=== PATIENT | female | born 1955 | race Caucasian/White ===

== ENCOUNTER 2018-06-08 18:09 | Emergency (ER) | payer OTHER ==
[2018-06-08] MEDS ORDERED: FENTANYL CITR 100 MCG/2 ML ONE (19:07)
--- NOTE | 2018-06-08 20:08 | RAD REPORT ---
EXAM DESCRIPTION: RAD - Pelvis - 06/08/2018 7:49 pm CLINICAL HISTORY: Fall, left-sided pelvis and hip pain COMPARISON: None. TECHNIQUE: AP imaging of the pelvis was obtained. FINDINGS: No pelvic fracture identified. No fracture or dislocation of either proximal femur. No sig nificant SI joint or pubic symphysis finding. No pathologic bone process identified. IMPRESSION: Negative pelvis examination for acute or significant finding.
--- NOTE | 2018-06-08 20:10 | RAD REPORT ---
EXAM DESCRIPTION: RAD - Forearm Left - 06/08/2018 7:49 pm CLINICAL HISTORY: Fall, arm pain COMPARISON: None. FINDINGS: Elbow joint and proximal forearm intact. Distal radius fracture is present. There is a tra nsverse fracture across the metaphysis with 20 degree dorsal angulation deformity. There is an additi onal sagittally oriented fracture plane involves the articular surface. No ulna fracture seen. Soft t issue swelling is present around the wrist joint. No significant distraction. There may be minimal co mponent along the dorsal margin of the fracture plane. No foreign body seen. IMPRESSION: Distal radius fracture involving the articular surface. There is minimal dorsal angulati on.
--- NOTE | 2018-06-08 20:52 | ER ---
Nurse's Notes [facility] Name: Carla Amaro Age: 63 yrs Sex: Female : 1955 Arrival Date: 06/08/2018 Time: 18:12 Bed 5 Private MD: Diagnosis: Fall (on) (from) other stairs and steps;Distal left intra-articular radius fracture;Contusion of lower back and pelvis Presentation: 06/08 18:45 Presenting complaint: Patient states: I fell at the bottom of some stairs in my home, sg on the fall down the stairs I must have hurt my Left wrist because it was hurting pretty bad before I even hit the floor, I also have pain in my Left Hip, it was very hard to get into the car to get up here. Care prior to arrival: None. Mechanism of Injury: Fall down 4 steps. 18:45 Acuity: DEACON 4 sg 18:45 Method Of Arrival: Ambulatory sg Historical: - Allergies: 18:15 No Known Allergies; sg - Home Meds: 18:48 None [Active]; sg - PMHx: 18:48 None; sg - PSHx: 18:15 R elbow; sg - Immunization history: Last tetanus immunization:. - Social history:: Smoking status: Patient/guardian denies using tobacco. Screenin:47 Abuse screen: Denies threats or abuse. Denies injuries from another. Tuberculosis sg screening: No symptoms or risk factors identified. Never had TB. 19:06 Nutritional screening: No deficits noted. Fall Risk None identified. aj Primary Survey: 19:00 Breathing/Chest: Respiratory pattern: regular, Respiratory effort: spontaneous, aj unlabored, Breath sounds: clear, bilaterally. Chest inspection: symmetrical rise and fall of the chest. Circulation: Skin color: pink, Skin temperature: warm, dry. Disability Alert. 20:16 Reassessment Airway Airway Patent Breathing/Chest Respiratory pattern Regular aj Respiratory effort Spontaneous Unlabored Circulation Color [place] Temperature Warm Dry Disability Alert. Assessment: 19:06 General: Appears in no apparent distress. comfortable, Behavior is calm, cooperative, aj appropriate for age. Pain: Complains of pain in left wrist. Neuro: Level of Consciousness is awake, alert, obeys commands, Oriented to person, place, time, situation. Respiratory: Airway is patent Respiratory effort is even, unlabored, Respiratory pattern is regular, symmetrical. Derm: Skin is intact, is healthy with good turgor, Skin is pink, warm \T\ dry. normal. Musculoskeletal: Circulation, motion, and sensation intact. Capillary refill < 3 seconds, in bilateral fingers. Swelling present in left wrist Reports pain in left wrist. 20:16 Reassessment: Patient appears in no apparent distress at this time. No changes from aj previously documented assessment. Patient and/or family updated on plan of care and expected duration. Pain level reassessed. Patient is alert, oriented x 3, equal unlabored respirations, skin warm/dry/pink. Patient sitting up on side of bed talking with family. Reports decreased pain Patient states feeling better. Patient states symptoms have improved. Vital Signs: 18:47 BP 161 / 110; Pulse 88; Resp 17; Temp 98.4; Pulse Ox 97% on R/A; Pain 10/10; sg 19:06 BP 151 / 81; Pulse 88; Resp 17; Pulse Ox 96% on R/A; aj 20:16 BP 169 / 75; Pulse 78; Resp 16; Pulse Ox 98% on R/A; aj 20:58 BP 145 / 78; Pulse 82; Resp 16; Pulse Ox 96% on R/A; aj Bethel Coma Score: 18:47 Eye Response: spontaneous(4). Verbal Response: oriented(5). Motor Response: obeys sg commands(6). Total: 15. Trauma Score (Adult): 18:47 Eye Response: spontaneous(1); Verbal Response: oriented(1); Motor Response: obeys sg commands(2); Systolic BP: > 89 mm Hg(4); Respiratory Rate: 10 to 29 per min(4); Lauren Score: 15; Trauma Score: 12 ED Course: 18:12 Patient arrived in ED. mr 18:29 Thea Walden FNP-C is [facility]. snw 18:30 Cecilio Du MD is Attending Physician. snw 18:30 Zuleyka Recinos, TANISHA is Primary Nurse. aj 18:47 Triage completed. sg 19:06 Bed in low position. Call light in reach. Side rails up X 1. Adult w/ patient. Pulse ox aj on. NIBP on. 19:48 Forearm Left XRAY In Process Unspecified. EDMS 19:48 Pelvis XRAY In Process Unspecified. EDMS 20:42 Enrique Paz MD is Referral Physician. snw 20:43 Orthoglass splint: Sugar tong splint applied on left arm. Sling applied to left arm. oe 20:58 No provider procedures requiring assistance completed. Patient did not have IV access aj during this emergency room visit. 20:59 Arm band placed on. aj Administered Medications: 19:06 Drug: fentaNYL (PF) 50 mcg Route: IM; Site: right deltoid; aj 20:18 Follow up: Response: Pain is decreased aj Intake: 18:47 PO: 0ml; Total: 0ml. sg Outcome: 20:51 Discharge ordered by MD. snw 20:58 Discharged to home ambulatory, with family. aj 20:58 Condition: good 20:58 Discharge instructions given to patient, Instructed on discharge instructions, follow up and referral plans. medication usage, Demonstrated understanding of instructions, follow-up care, medications, splint care, Prescriptions given X 2. 20:59 Patient left the ED. noah Signatures: Dispatcher [employer] SIRISHADE Nain Fiore RN RN sg Myers, Amanda, RN RN aj Therrien, Shelly, STRUCTURAL IRON ERECTOR-C STRUCTURAL IRON ERECTOR-Csnw Mitali Lerma mr EmmanuelTimAmol oe Corrections: (The following items were deleted from the chart) 20:46 20:43 Orthoglass splint: Sugar tong splint applied on left arm. Sling applied to left oe arm. oe
--- NOTE | 2018-06-08 20:52 | EDPHYS ---
Physician Documentation [facility] Name: Carla Amaro Age: 63 yrs Sex: Female : 1955 Arrival Date: 06/08/2018 Time: 18:12 Bed 5 Private MD: ED Physician Cecilio Du HPI: 06/08 21:02 This 63 yrs old Female presents to ER via Ambulatory with complaints of Fall snw Injury, Wrist Pain. 21:02 Details of fall: The patient fell from an upright position, while walking. Onset: The snw symptoms/episode began/occurred suddenly, just prior to arrival. Associated injuries: The patient sustained left arm, left hip. Severity of symptoms: At their worst the symptoms were moderate. The patient has not experienced similar symptoms in the past. It is unknown whether or not the patient has recently seen a physician. Pt was walking down the stairs and tried to avoid a dog at the bottom, slipped and fell down about four stairs, no LOC, c/o left arm and left hip pain. Historical: - Allergies: 18:15 No Known Allergies; sg - Home Meds: 18:48 None [Active]; sg - PMHx: 18:48 None; sg - PSHx: 18:15 R elbow; sg - Immunization history: Last tetanus immunization:. - Social history:: Smoking status: Patient/guardian denies using tobacco. ROS: 21:02 Constitutional: Negative for fever, chills, and weight loss, Eyes: Negative for injury, snw pain, redness, and discharge, ENT: Negative for injury, pain, and discharge, Neck: Negative for injury, pain, and swelling, Cardiovascular: Negative for chest pain, palpitations, and edema, Respiratory: Negative for shortness of breath, cough, wheezing, and pleuritic chest pain, Abdomen/GI: Negative for abdominal pain, nausea, vomiting, diarrhea, and constipation, Back: Negative for injury and pain, : Negative for injury, bleeding, discharge, and swelling, Skin: Negative for injury, rash, and discoloration, Neuro: Negative for headache, weakness, numbness, tingling, and seizure. 21:02 MS/extremity: Positive for injury or acute deformity, decreased range of motion, pain, of the left arm, landed on buttock, no LOC. Exam: 21:02 Constitutional: This is a well developed, well nourished patient who is awake, alert, snw and in no acute distress. Head/Face: Normocephalic, atraumatic. Eyes: Pupils equal round and reactive to light, extra-ocular motions intact. Lids and lashes normal. Conjunctiva and sclera are non-icteric and not injected. Cornea within normal limits. Periorbital areas with no swelling, redness, or edema. ENT: Nares patent. No nasal discharge, no septal abnormalities noted. Tympanic membranes are normal and external auditory canals are clear. Oropharynx with no redness, swelling, or masses, exudates, or evidence of obstruction, uvula midline. Mucous membranes moist. Neck: Trachea midline, no thyromegaly or masses palpated, and no cervical lymphadenopathy. Supple, full range of motion without nuchal rigidity, or vertebral point tenderness. No Meningismus. Chest/axilla: Normal chest wall appearance and motion. Nontender with no deformity. No lesions are appreciated. Cardiovascular: Regular rate and rhythm with a normal S1 and S2. No gallops, murmurs, or rubs. Normal PMI, no JVD. No pulse deficits. Respiratory: Lungs have equal breath sounds bilaterally, clear to auscultation and percussion. No rales, rhonchi or wheezes noted. No increased work of breathing, no retractions or nasal flaring. Abdomen/GI: Soft, non-tender, with normal bowel sounds. No distension or tympany. No guarding or rebound. No evidence of tenderness throughout. Back: No spinal tenderness. No costovertebral tenderness. Full range of motion. Skin: Warm, dry with normal turgor. Normal color with no rashes, no lesions, and no evidence of cellulitis. Neuro: Awake and alert, GCS 15, oriented to person, place, time, and situation. Cranial nerves II-XII grossly intact. Motor strength 5/5 in all extremities. Sensory grossly intact. Cerebellar exam normal. Normal gait. Psych: Awake, alert, with orientation to person, place and time. Behavior, mood, and affect are within normal limits. 21:02 Musculoskeletal/extremity: Extremities: grossly normal except: noted in the left arm: deformity, pain, swelling, tenderness, ROM: limited active range of motion due to pain, in the left wrist, Circulation is intact in all extremities. Sensation intact. tenderness to hips. Vital Signs: 18:47 BP 161 / 110; Pulse 88; Resp 17; Temp 98.4; Pulse Ox 97% on R/A; Pain 10/10; sg 19:06 BP 151 / 81; Pulse 88; Resp 17; Pulse Ox 96% on R/A; aj 20:16 BP 169 / 75; Pulse 78; Resp 16; Pulse Ox 98% on R/A; aj 20:58 BP 145 / 78; Pulse 82; Resp 16; Pulse Ox 96% on R/A; aj Marshall Coma Score: 18:47 Eye Response: spontaneous(4). Verbal Response: oriented(5). Motor Response: obeys sg commands(6). Total: 15. Trauma Score (Adult): 18:47 Eye Response: spontaneous(1); Verbal Response: oriented(1); Motor Response: obeys sg commands(2); Systolic BP: > 89 mm Hg(4); Respiratory Rate: 10 to 29 per min(4); Lauren Score: 15; Trauma Score: 12 MDM: 18:30 Patient medically screened. snw 21:19 Data reviewed: vital signs, nurses notes. Data interpreted: Pulse oximetry: on room air snw is 96 %. Interpretation: acceptable. Counseling: I had a detailed discussion with the patient and/or guardian regarding: the historical points, exam findings, and any diagnostic results supporting the discharge/admit diagnosis, the presence of at least one elevated blood pressure reading (>120/80) during this emergency department visit, radiology results, the need for outpatient follow up, to return to the emergency department if symptoms worsen or persist or if there are any questions or concerns that arise at home. Special discussion: Based on the history and exam findings, there is no indication for further emergent testing or inpatient evaluation. I discussed with the patient/guardian the need to see the orthopedic surgeon for further evaluation of the symptoms. I discussed with the patient/guardian the need to see the primary care provider for further evaluation of the symptoms. 21:24 Response to treatment: the patient's symptoms have markedly improved after treatment, + snw cap refill and NVS post splint placement. 06/08 18:54 Order name: Forearm Left XRAY; Complete Time: 20:12 snw 06/08 18:54 Order name: Pelvis XRAY; Complete Time: 20:12 snw 06/08 20:22 Order name: Abbi Tong Forearm Splint; Complete Time: 20:45 snw 06/08 20:22 Order name: Sling; Complete Time: 20:45 snw Administered Medications: 19:06 Drug: fentaNYL (PF) 50 mcg Route: IM; Site: right deltoid; aj 20:18 Follow up: Response: Pain is decreased aj Disposition: 06/08/18 20:51 Discharged to Home. Impression: Fall (on) (from) other stairs and steps, Distal left intra-articular radius fracture, Contusion of lower back and pelvis. - Condition is Stable. - Discharge Instructions: Contusion, Forearm Fracture, Fall Prevention in the Home. - Prescriptions for Diclofenac Sodium 75 mg Oral Tablet Sustained Release - take 1 tablet by ORAL route 2 times per day; 30 tablet. orphenadrine citrate 100 mg Oral Tablet Sustained Release - take 1 tablet by ORAL route 2 times per day As needed; 20 tablet. - Medication Reconciliation Form, Thank You Letter, Antibiotic Education, Prescription Opioid Use form. - Follow up: Enrique Paz MD; When: 2 - 3 days; Reason: Recheck today's complaints, Continuance of care, Re-evaluation by your physician. Addendum: 06/10/2018 08:14 Co-signature as Attending Physician, Cecilio Du MD I agree with the assessment and w a plan of care. Signatures: Dispatcher [employer] EDMS Nain Fiore RN RN sg Myers, Amanda, RN RN aj Therrien, Shelly, WELFARE DIRECTOR-C WELFARE DIRECTOR-Csnw Cecilio Du MD MD ut Corrections: (The following items were deleted from the chart) 06/08 20:59 20:51 06/08/2018 20:51 Discharged to Home. Impression: Fall (on) (from) other stairs aj and steps; Distal left intra-articular radius fracture; Contusion of lower back and pelvis. Condition is Stable. Forms are Medication Reconciliation Form, Thank You Letter, Antibiotic Education, Prescription Opioid Use. Follow up: Enrique aPz; When: 2 - 3 days; Reason: Recheck today's complaints, Continuance of care, Re-evaluation by your physician. snw
[2018-06-08 21:05] VITALS: TEMP 98.4
[2018-06-08 21:09] VITALS: BP 145/78; O2SAT 96
== END 2018-06-08 20:59 | disposition home or self-care (01) ==
LOC: ER 18:09
PROC: 2W3DX1Z Immobilization of Left Lower Arm using Splint (ICD-10-PCS; principal; 2018-06-08)
DX: S52.572A Other intraarticular fracture of lower end of left radius, initial encounter for closed fracture (principal); S30.0XXA Contusion of lower back and pelvis, initial encounter; W10.9XXA Fall (on) (from) unspecified stairs and steps, initial encounter; Y93.89 Activity, other specified; Y92.9 Unspecified place or not applicable
CPT/HCPCS: 72170; 96372; 99284; J3010

== ENCOUNTER 2018-12-15 09:25 | Emergency (ER) | payer OTHER ==
--- OUTSIDE RECORDS SUMMARY | 2018-12-15 09:27 | XMS REPORT ---
:1955 Author Organization [employer] Care Team Providers Name Role Phone Guevara, Na Provider Role Unavailable Allergies No Known Allergies Problems Problem Type Condition Code Onset Dates Condition Status Problem Mixed hyperlipidemia E78.2 Active Problem Adult BMI 50.0-59.9 kg/sq m Z68.43 Active Problem Hypertension I10 Active Problem Closed fracture of left wrist, S62.102S Active sequela Problem Hypertensive urgency I16.0 Active Problem Asymptomatic hypertensive urgency I16.0 Active Medications No Known Medications Results No Known Results Summary Purpose eClinicalWorks Submission
--- OUTSIDE RECORDS SUMMARY | 2018-12-15 09:27 | XMS REPORT ---
:1955 Author Organization [employer] Care Team Providers Name Role Phone Guevara, Na Provider Role Unavailable Allergies, Adverse Reactions, Alerts Substance Reaction Event Type N.K.D.A. Info Not Available Non Drug Allergy Problems Problem Type Condition Code Onset Dates Condition Status Assessment Other specified bacterial agents B96.89 Active as the cause of diseases classified elsewhere Assessment Encounter for general adult Z00.01 Active medical examination with abnormal findings Assessment White coat syndrome with diagnosis I10 Active of hypertension Assessment Mixed hyperlipidemia E78.2 Active Assessment Acute vaginitis N76.0 Active Assessment Prediabetes R73.03 Active Problem Mixed hyperlipidemia E78.2 Active Problem Adult BMI 50.0-59.9 kg/sq m Z68.43 Active Problem Hypertension I10 Active Problem Closed fracture of left wrist, S62.102S Active sequela Problem Hypertensive urgency I16.0 Active Problem Asymptomatic hypertensive urgency I16.0 Active Medications Medication Code Code Instructions Start End Date Status Dosage System Date Metronidazole [facility] 00860478001 500 MG Orally Nov 07, Active 1 tablet Twice a day 2018 Lisinopril [facility] 03033160103 20 MG Orally Active 1 tablet Once a day Results No Known Results Summary Purpose [employer]ClinicalWorks Submission
--- NOTE | 2018-12-15 10:19 | EDPHYS ---
Physician Documentation [facility] Name: Carla Amaro Age: 63 yrs Sex: Female : 1955 Arrival Date: 12/15/2018 Time: 09:28 Bed 18 Private MD: Iwona Guevara ED Physician Larry Carson HPI: 12/15 09:53 This 63 yrs old Female presents to ER via Ambulatory with complaints of Foot kdr Pain. 09:53 The patient presents with pain, that is acute, a rash, erythematous, The patient has kdr painful itching and dried skin on the arch of the sole of her foot. It has been there about three days and has become more painful since it started to crack open with minor bleeding. The area is about 2.5 cm x 3.5 cm. There is mild surrounding erythema but no other evidence of cellulitis. Historical: - Allergies: 09:46 No Known Allergies; hj - Home Meds: 09:46 None [Active]; hj - PMHx: 09:46 None; hj - PSHx: 09:46 None; hj - Immunization history:: Adult Immunizations up to date. - Social history:: Smoking status: Patient/guardian denies using tobacco, Patient/guardian denies using alcohol. - Ebola Screening: : Patient negative for fever greater than or equal to 101.5 degrees Fahrenheit, and additional compatible Ebola Virus Disease symptoms Patient denies exposure to infectious person Patient denies travel to an Ebola-affected area in the 21 days before illness onset. ROS: 09:53 Skin: Negative for injury, rash, and discoloration. kdr Exam: 09:53 Skin: rash can be described as erythematous, macular, nonspecific, plaque-like, raised, kdr Fungal rash. Vital Signs: 09:48 Resp 18; Temp 98.1(O); Pulse Ox 100% on R/A; Weight 106.14 kg; Height 5 ft. 6 in. hj (167.64 cm); Pain 5/10; 10:15 BP 124 / 77; Pulse 73; Resp 17; Pulse Ox 100% on R/A; Pain 5/10; ed1 09:48 Body Mass Index 37.77 (106.14 kg, 167.64 cm) MDM: 09:53 Data reviewed: vital signs, nurses notes. Counseling: I had a detailed discussion with kdr the patient and/or guardian regarding: the historical points, exam findings, and any diagnostic results supporting the discharge/admit diagnosis, the need for outpatient follow up. 10:18 Patient medically screened. kdr Administered Medications: 10:14 Drug: Lotrimin 1 % 1 application Route: Topical; Site: affected area; ed1 10:24 Follow up: Response: No adverse reaction ed1 Disposition: 12/15/18 10:18 Discharged to Home. Impression: Fungal rash on arch of left foot. - Condition is Stable. - Discharge Instructions: Rash, [id number]. - Prescriptions for Lotrimin AF 1 % Topical cream - apply 1 application by TOPICAL route 2 times per day Until resolved; 1 Container. - Medication Reconciliation Form, Thank You Letter, Antibiotic Education form. - Follow up: Iwona Guevara MD; When: 2 - 3 days; Reason: If symptoms return, Further diagnostic work-up, Recheck today's complaints, Continuance of care, Re-evaluation by your physician. - Problem is new. - Symptoms have improved. Signatures: Larry Carson MD MD [facility] Joan Sloan RN RN ed1 Pedro Delatorre RN RN Corrections: (The following items were deleted from the chart) 10:25 10:18 12/15/2018 10:18 Discharged to Home. Impression: Fungal rash on arch of left ed1 foot. Condition is Stable. Forms are Medication Reconciliation Form, Thank You Letter, Antibiotic Education, Prescription Opioid Use. Follow up: Iwona Guevara; When: 2 - 3 days; Reason: If symptoms return, Further diagnostic work-up, Recheck today's complaints, Continuance of care, Re-evaluation by your physician. Problem is new. Symptoms have improved. kdr
--- NOTE | 2018-12-15 10:19 | ER ---
Nurse's Notes [facility] Name: Carla Amaro Age: 63 yrs Sex: Female : 1955 Arrival Date: 12/15/2018 Time: 09:28 Bed 18 Private MD: Iwona Guevara Diagnosis: Fungal rash on arch of left foot Presentation: 12/15 09:43 Presenting complaint: Patient states: i noticed a scaly, painful, red, skin breakdown, hj on my the bottom of my L foot; and over days it becomes itchy as well; denies fever and chills;. Transition of care: patient was not received from another setting of care. Onset of symptoms was December 15, 2018. Risk Assessment: Do you want to hurt yourself or someone else? Patient reports no desire to harm self or others. Initial Sepsis Screen: Does the patient meet any 2 criteria? Yes Does the patient have a suspected source of infection? Yes: Skin breakdown/wound. Care prior to arrival: None. 09:43 Method Of Arrival: Ambulatory 09:43 Acuity: DEACON 4 hj Triage Assessment: 09:47 General: Appears in no apparent distress. uncomfortable, Behavior is calm, cooperative, hj appropriate for age. Pain: Complains of pain in left foot Pain currently is 5 out of 10 on a pain scale. Historical: - Allergies: 09:46 No Known Allergies; hj - Home Meds: 09:46 None [Active]; hj - PMHx: 09:46 None; hj - PSHx: 09:46 None; hj - Immunization history:: Adult Immunizations up to date. - Social history:: Smoking status: Patient/guardian denies using tobacco, Patient/guardian denies using alcohol. - Ebola Screening: : Patient negative for fever greater than or equal to 101.5 degrees Fahrenheit, and additional compatible Ebola Virus Disease symptoms Patient denies exposure to infectious person Patient denies travel to an Ebola-affected area in the 21 days before illness onset. Screenin:47 Abuse screen: Denies threats or abuse. Denies injuries from another. Nutritional hj screening: No deficits noted. Tuberculosis screening: No symptoms or risk factors identified. Fall Risk None identified. Assessment: 10:15 General: Appears in no apparent distress. Behavior is calm, cooperative. Pain: ed1 Complains of pain in arch of left foot Pain does not radiate. Pain currently is 8 out of 10 on a pain scale. Quality of pain is described as aching, Pain began 2-3 days ago. Is continuous. Neuro: Level of Consciousness is awake, alert, obeys commands, Oriented to person, place, time, situation. Cardiovascular: Denies chest pain, Heart tones S1 S2 present. Respiratory: Airway is patent Respiratory effort is even, unlabored, Respiratory pattern is regular, symmetrical, Breath sounds are clear bilaterally. GI: No signs and/or symptoms were reported involving the gastrointestinal system. : No signs and/or symptoms were reported regarding the genitourinary system. EENT: No signs and/or symptoms were reported regarding the EENT system. Derm: scaly area noted to bottom of left foot Reports itching, peeling, Denies pain. Musculoskeletal: Circulation, motion, and sensation intact. Vital Signs: 09:48 Resp 18; Temp 98.1(O); Pulse Ox 100% on R/A; Weight 106.14 kg; Height 5 ft. 6 in. (167.64 cm); Pain 5/10; 10:15 BP 124 / 77; Pulse 73; Resp 17; Pulse Ox 100% on R/A; Pain 5/10; ed1 09:48 Body Mass Index 37.77 (106.14 kg, 167.64 cm) ED Course: 09:28 Patient arrived in ED. mr 09:28 Iwona Guevara MD is Private Physician. mr 09:35 Larry Carson MD is Attending Physician. kdr 09:43 Pedro Delatorre RN is Primary Nurse. hj 09:46 Triage completed. hj 09:47 Arm band placed on right wrist. hj 09:48 Patient has correct armband on for positive identification. Bed in low position. Call light in reach. Side rails up X 1. 09:59 Primary Nurse role handed off by Pedro Delatorre, TANISHA ed1 09:59 Joan Sloan RN is Primary Nurse. ed1 10:15 No provider procedures requiring assistance completed. Patient did not have IV access ed1 during this emergency room visit. 10:17 Iwona Guevara MD is Referral Physician. kdr 10:18 Awaiting disposition. ed1 Administered Medications: 10:14 Drug: Lotrimin 1 % 1 application Route: Topical; Site: affected area; ed1 10:24 Follow up: Response: No adverse reaction ed1 Outcome: 10:18 Discharge ordered by . jonah 10:24 Discharged to home ambulatory. ed1 10:24 Condition: good 10:24 Discharge instructions given to patient, Instructed on discharge instructions, follow up and referral plans. medication usage, Demonstrated understanding of instructions, follow-up care, medications, Prescriptions given X 1. 10:25 Patient left the ED. ed1 Signatures: Larry Carson MD MD kdr Rivera, Mary mr Riggs, Erika, RN RN ed1 Pedro Delatorre RN RN Corrections: (The following items were deleted from the chart) 10:17 10:15 Pain: Denies pain. ed1 ed1
[2018-12-15 10:30] VITALS: TEMP 98.1; O2SAT 100
[2018-12-15 10:31] VITALS: BP 124/77
[2018-12-15] MEDS ORDERED: CLOTRIMAZOLE 1% CREAM 15 GM TOP SCH (21:00)
== END 2018-12-15 10:25 | disposition home or self-care (01) ==
LOC: ER 09:25
DX: R21 Rash and other nonspecific skin eruption (principal)
CPT/HCPCS: 99283

== ENCOUNTER 2025-05-29 04:35 | Emergency (ER) | payer OTHER ==
--- OUTSIDE RECORDS SUMMARY | 2025-05-29 04:39 | XMS REPORT | Continuity of Care Document ---
Author Name Unknown Address [address] [facility] [address] [place] [address] [facility] Address [address] [facility] [address] [place] [address] Care Team Providers Care E Commerce Project Manager Name Role Phone Laurel Hughes MD Primary Care Physician [phone] Laurel Hughes Attending Clinician Unavailable Ninoska Hughes Attending Clinician Unavailable Deandra Butler Attending Clinician Unavailable Iwona Guevara Attending Clinician Unavailable Monster Walton PA-C Attending Clinician [phone] DANNY ALDRICH Attending Clinician Unavail able DANNY ALDRICH Attending Clinician Unavail Danny Quinteros MD Attending Clinician [phone] KENIA MONTANO Attending Clinician Unavaila KENIA Luciano Admitting Clinician Unavailpavithra partida Payers Payer Name Policy Type Policy Number Effective Date Expirati on Date Source [employer]ARE 53 [id number] 2020 00:00:00 [facility] Problems Condition Name Condition Details Condition Category Status Onset Date Resolution Date Last Treatment Date Treating Clinician Comments Source Uterine mass Uterine mass Disease Active 10-25 00:00: 00 [facility] Benign neoplasm of skin Other benign neoplasm of skin, unspecifie d Problem [facility] Allergic rhinitis Non-season al allergic rhinitis, unspecifie d trigger Problem [facility] [id number] Seasonal allergies Problem [facility] [id number] Body mass index (BMI) of 40.0-44.9 in adult Problem [facility] [id number] Mixed hyperlipid emia Problem [facility] Hypertensi on Hypertensi on Problem [facility] [id number] Closed fracture of left wrist, sequela Problem [facility] [id number] Hypertensi ve urgency Problem [facility] [id number] Fatty liver Problem [facility] Essential hypertensi on White coat syndrome with diagnosis of hypertensi on Problem [facility] [id number] Hyperkalem ia Problem [facility] [id number] Prediabete s Problem [facility] [id number] Bilateral carotid artery disease, unspecifie d type Problem [facility] Allergies, Adverse Reactions, Alerts Allergy Name Allergy Type Status Severity Reaction(s) Onset Date Inactive Date Treating Clinician Comments Source NO KNOWN ALLERGIE S Drug Class Active [facility] Social History Social Habit Start Date Stop Date Quantity Comments Source History of Tobacco Use [facility] Sexual orientation U [facility] Sex assigned at 1955 00:00:00 1955 00:00:00 [facility] Smoking Status Start Date Stop Date Source Tobacco smoking consumption unknown [facility] Never Smoker [facility] Medications Ordered Medication Name Filled Medication Name Start Date Stop Date Current Medication? Ordering Clinician Indication Dosage Frequency Signature (SIG) Comments Components Source methylPREDN ISolone (MEDROL, ROYAL,) 4 mg tablets 2023-10 00:00: 00 Yes [id number] Take by mouth SEE-INSTRU CTIONS. follow package directions [facility] amoxicillin -clavulanat e 875-125 mg per tablet 2023-10 00:00: 00 Yes [id number] 1{tbl} Take 1 tablet by mouth every 12 (twelve) hours. [facility] fluorescein (FUL-DELLA) ophthalmic strip 1 mg 2023-10 15:45: 00 08-25 15:45 :00 No 1mg 1 mg, Left Eye, ONCE, 1 dose, On 08/25/24 at 0945, Routine, store team member approving non-formul myrna medication : DANNY ALDRICH, Reason for non-formul myrna use: Specific indication for non-formul myrna alternativ e [facility] proparacain e (ALCAINE) 0.5 % ophthalmic solution 2 Drop 2023-10 15:00: 00 08-25 15:00 :00 No 2[drp] 2 Drop, Left Eye, ONCE, 1 dose, On 08/25/24 at 0900, NICKY [facility] ciprofloxac in HCl 0.3 % opthalmic drops 2023-10 00:00: 00 Yes [id number] 2[drp] Place 2 Drops in left eye 4 (four) times daily. [facility] iopamidol (ISOVUE 370-500 mL) injection 85 mL 10-25 21:15: 00 10-25 21:15 :00 No 85mL 85 mL, Intravenou s, ONCE, 1 dose, On Tu10/25/23 at 1515, Routine [facility] ketorolac 10 mg tablet 10-25 00:00: 00 10-29 05:59 :00 No [id number] 10mg Take 1 tablet by mouth every 8 (eight) hours for 3 days. [facility] Aspirin Adult Low Dose 81 MG Aspirin Adult Low Dose 81 MG 06-23 00:00: 00 No 1{table t} QD Aspirin Adult Low Dose 81 MG Rosuvastati n Calcium 20 MG Rosuvastati n Calcium 20 MG No 1{table t} Rosuvastat in Calcium 20 MG Lisinopril 20 MG Lisinopril 20 MG No 1{table t} QD Lisinopril 20 MG Centrum Silver 50+Women - Centrum Silver 50+Women - No Centrum Silver 50+Women - Vital Signs Vital Name Observation Time Observation Value Comments Antonia salazar height 2024-11-19 08:00:00 64 [in_i] Commo n [facility] weight 2024-11-19 08:00:00 217 [lb_av] Comm on [facility] temperature 2024-11-19 08:00:00 96.7 [degF] Com [facility] bmi 2024-11-19 08:00:00 37.24 kg/m2 Comm on [facility] oximetry 2024-11-19 08:00:00 98 % Commo n [facility] respiratory rate 2024-11-19 08:00:00 16 /min [facility] blood pressure systolic 2024-11-19 08:00:00 132 mm[Hg] [facility] blood pressure diastolic 2024-11-19 08:00:00 72 mm[Hg] [facility] height 2024-11-19 08:00:00 64 [in_i] Commo n [facility] weight 2024-11-19 08:00:00 217 [lb_av] Comm on [facility] temperature 2024-11-19 08:00:00 96.7 [degF] Com [facility] bmi 2024-11-19 08:00:00 37.24 kg/m2 Comm on [facility] oximetry 2024-11-19 08:00:00 98 % Commo n [facility] respiratory rate 2024-11-19 08:00:00 16 /min [facility] blood pressure systolic 2024-11-19 08:00:00 132 mm[Hg] [facility] blood pressure diastolic 2024-11-19 08:00:00 72 mm[Hg] [facility] height 2024-11-19 08:00:00 64 [in_i] Commo n [facility] weight 2024-11-19 08:00:00 217 [lb_av] Comm on [facility] temperature 2024-11-19 08:00:00 96.7 [degF] Com [facility] bmi 2024-11-19 08:00:00 37.24 kg/m2 Comm on [facility] oximetry 2024-11-19 08:00:00 98 % Commo n [facility] respiratory rate 2024-11-19 08:00:00 16 /min [facility] blood pressure systolic 2024-11-19 08:00:00 132 mm[Hg] [facility] blood pressure diastolic 2024-11-19 08:00:00 72 mm[Hg] [facility] height 2024-11-02 14:00:00 64 [in_i] Commo n [facility] weight 2024-11-02 14:00:00 217 [lb_av] Comm on [facility] temperature 2024-11-02 14:00:00 97.2 [degF] Com [facility] bmi 2024-11-02 14:00:00 37.24 kg/m2 Comm on [facility] oximetry 2024-11-02 14:00:00 97 % Commo n [facility] respiratory rate 2024-11-02 14:00:00 16 /min Common [facility] blood pressure systolic 2024-11-02 14:00:00 124 mm[Hg] [facility] blood pressure diastolic 2024-11-02 14:00:00 76 mm[Hg] [facility] height 2024-09-21 10:00:00 64 [in_i] Commo n [facility] weight 2024-09-21 10:00:00 219 [lb_av] Comm on [facility] temperature 2024-09-21 10:00:00 97.3 [degF] Com mon [facility] bmi 2024-09-21 10:00:00 37.59 kg/m2 Comm on [facility] oximetry 2024-09-21 10:00:00 98 % Commo n [facility] respiratory rate 2024-09-21 10:00:00 16 /min [facility] blood pressure systolic 2024-09-21 10:00:00 126 mm[Hg] [facility] blood pressure diastolic 2024-09-21 10:00:00 82 mm[Hg] [facility] Systolic blood pressure 2024-08-28 23:40:00 167 mm[Hg] [facility] Diastolic blood pressure 2024-08-28 23:40:00 90 mm[Hg] [facility] Heart rate 2024-08-28 23:40:00 103 /min [facility] Body temperature 2024-08-28 23:40:00 37.39 [facility] Respiratory rate 2024-08-28 23:40:00 20 /min [facility] Body height 2024-08-28 23:40:00 167.6 cm [facility] Body weight 2024-08-28 23:40:00 102.967 kg [facility] BMI 2024-08-28 23:40:00 36.64 kg/m2 [facility] Oxygen saturation in Arterial blood by Pulse oximetry 2024-08-28 23:40:00 99 /min [facility] Systolic blood pressure 2024-08-25 15:00:00 142 mm[Hg] [facility] Diastolic blood pressure 2024-08-25 15:00:00 91 mm[Hg] [facility] Heart rate 2024-08-25 15:00:00 73 /min [facility] Respiratory rate 2024-08-25 15:00:00 14 /min [facility] Oxygen saturation in Arterial blood by Pulse oximetry 2024-08-25 15:00:00 97 /min [facility] Body temperature 2024-08-25 13:25:00 37.11 [facility] Body height 2024-08-25 13:25:00 167.6 cm [facility] Body weight 2024-08-25 13:25:00 103.193 kg [facility] BMI 2024-08-25 13:25:00 36.72 kg/m2 [facility] height 2024-08-17 09:00:00 64 [in_i] Commo n [facility] weight 2024-08-17 09:00:00 229.4 [lb_av] Co mmon [facility] temperature 2024-08-17 09:00:00 97 [degF] Comm on [facility] bmi 2024-08-17 09:00:00 39.37 kg/m2 Comm on [facility] oximetry 2024-08-17 09:00:00 96 % Commo n [facility] respiratory rate 2024-08-17 09:00:00 16 /min [facility] blood pressure systolic 2024-08-17 09:00:00 124 mm[Hg] [facility] blood pressure diastolic 2024-08-17 09:00:00 72 mm[Hg] [facility] height 2024-02-15 14:00:00 64 [in_i] Commo n [facility] weight 2024-02-15 14:00:00 237 [lb_av] Comm on [facility] temperature 2024-02-15 14:00:00 97.3 [degF] Com mon [facility] bmi 2024-02-15 14:00:00 40.68 kg/m2 Comm on [facility] oximetry 2024-02-15 14:00:00 96 % Commo n [facility] respiratory rate 2024-02-15 14:00:00 16 /min Common [facility] blood pressure systolic 2024-02-15 14:00:00 124 mm[Hg] [facility] blood pressure diastolic 2024-02-15 14:00:00 70 mm[Hg] [facility] height 2024-02-15 14:00:00 64 [in_i] Commo n [facility] weight 2024-02-15 14:00:00 237 [lb_av] Comm on [facility] temperature 2024-02-15 14:00:00 97.3 [degF] Com mon [facility] bmi 2024-02-15 14:00:00 40.68 kg/m2 Comm on [facility] oximetry 2024-02-15 14:00:00 96 % Commo n [facility] respiratory rate 2024-02-15 14:00:00 16 /min [facility] blood pressure systolic 2024-02-15 14:00:00 124 mm[Hg] [facility] blood pressure diastolic 2024-02-15 14:00:00 70 mm[Hg] [facility] Systolic blood pressure 2023-10-25 20:53:00 140 mm[Hg] [facility] Diastolic blood pressure 2023-10-25 20:53:00 70 mm[Hg] [facility] Heart rate 2023-10-25 20:53:00 78 /min [facility] Respiratory rate 2023-10-25 20:53:00 16 /min [facility] Oxygen saturation in Arterial blood by Pulse oximetry 2023-10-25 20:53:00 95 /min [facility] Body temperature 2023-10-25 18:19:00 37.22 [facility] Body height 2023-10-25 18:19:00 167.6 cm [facility] Body weight 2023-10-25 18:19:00 107.14 kg [facility] BMI 2023-10-25 18:19:00 38.12 kg/m2 [facility] height 2023-08-16 16:20:00 64 [in_i] Commo n [facility] weight 2023-08-16 16:20:00 230 [lb_av] Comm on [facility] temperature 2023-08-16 16:20:00 97.6 [degF] Com [facility] bmi 2023-08-16 16:20:00 39.48 kg/m2 Comm on [facility] oximetry 2023-08-16 16:20:00 98 % Commo n [facility] respiratory rate 2023-08-16 16:20:00 16 /min [facility] blood pressure systolic 2023-08-16 16:20:00 136 mm[Hg] [facility] blood pressure diastolic 2023-08-16 16:20:00 57 mm[Hg] [facility] height 2023-08-01 10:20:00 64 [in_i] Commo n [facility] weight 2023-08-01 10:20:00 230 [lb_av] Comm on [facility] temperature 2023-08-01 10:20:00 97.2 [degF] Com [facility] bmi 2023-08-01 10:20:00 39.48 kg/m2 Comm on [facility] oximetry 2023-08-01 10:20:00 96 % Commo n [facility] respiratory rate 2023-08-01 10:20:00 16 /min [facility] blood pressure systolic 2023-08-01 10:20:00 130 mm[Hg] [facility] blood pressure diastolic 2023-08-01 10:20:00 70 mm[Hg] [facility] height 2023-08-01 11:00:00 64 [in_i] Commo n [facility] weight 2023-08-01 11:00:00 230 [lb_av] Comm on [facility] temperature 2023-08-01 11:00:00 97.2 [degF] Com mon [facility] bmi 2023-08-01 11:00:00 39.48 kg/m2 Comm on [facility] oximetry 2023-08-01 11:00:00 96 % Commo n [facility] respiratory rate 2023-08-01 11:00:00 16 /min [facility] blood pressure systolic 2023-08-01 11:00:00 130 mm[Hg] [facility] blood pressure diastolic 2023-08-01 11:00:00 70 mm[Hg] [facility] height 2023-04-27 08:20:00 64 [in_i] Commo n [facility] weight 2023-04-27 08:20:00 226.0 [lb_av] Co mmon [facility] temperature 2023-04-27 08:20:00 97.3 [degF] Com mon [facility] bmi 2023-04-27 08:20:00 38.79 kg/m2 Comm on [facility] oximetry 2023-04-27 08:20:00 98 % Commo n [facility] respiratory rate 2023-04-27 08:20:00 18 /min [facility] blood pressure systolic 2023-04-27 08:20:00 118 mm[Hg] [facility] blood pressure diastolic 2023-04-27 08:20:00 62 mm[Hg] [facility] height 2022-06-22 09:40:00 64 [in_i] Commo n [facility] weight 2022-06-22 09:40:00 235 [lb_av] Comm on [facility] temperature 2022-06-22 09:40:00 97.1 [degF] Com mon [facility] bmi 2022-06-22 09:40:00 40.33 kg/m2 Comm on [facility] oximetry 2022-06-22 09:40:00 95 % Commo n [facility] respiratory rate 2022-06-22 09:40:00 17 /min [facility] blood pressure systolic 2022-06-22 09:40:00 133 mm[Hg] [facility] blood pressure diastolic 2022-06-22 09:40:00 63 mm[Hg] [facility] height 2022-06-22 09:00:00 64 [in_i] Commo n [facility] weight 2022-06-22 09:00:00 235 [lb_av] Comm on [facility] temperature 2022-06-22 09:00:00 97.1 [degF] Com mon [facility] bmi 2022-06-22 09:00:00 40.33 kg/m2 Comm on [facility] oximetry 2022-06-22 09:00:00 95 % Commo n [facility] respiratory rate 2022-06-22 09:00:00 17 /min [facility] blood pressure systolic 2022-06-22 09:00:00 133 mm[Hg] [facility] blood pressure diastolic 2022-06-22 09:00:00 63 mm[Hg] [facility] height 2021-09-02 10:20:00 56.5 [in_i] Comm on [facility] weight 2021-09-02 10:20:00 231 [lb_av] Comm on [facility] bmi 2021-09-02 10:20:00 50.87 kg/m2 Comm on [facility] Procedures Procedure Date / Time Performed Performing Clinicia n Source RAPID STREP SCREEN FOR GROUP A 2024-08-28 23:49:00 Anton [facility] INFLUENZA A/B RSV COVID NAAT 2024-08-28 23:49:00 Beverlin, Monster [facility] ABDOMEN PELVIS W CONTRAST 2023-10-25 20:14:55 Charmaine [facility] AC PANEL 21 + LACTIC ACID 2023-10-25 18:53:00 Charmaine [facility] LIPASE 2023-10-25 18:52:00 Kenia Montano [facility] HEPATIC FUNCTION PANEL ([id number]) (ALB,T.PRO,BILI T,BU/BC,ALT,AST,ALK PHOS) 2023-10-25 18:52:00 Charmaine [facility] BASIC METABOLIC PANEL (NA, K, CL, CO2, GLUCOSE, BUN, CREATININE, CA) 2023-10-25 18:52:00 Charmaine [facility] CBC WITH DIFF 2023-10-25 18:52:00 Charmaine [facility] URINALYSIS 2023-10-25 18:49:00 Kenia Montano [facility] CONSENT/REFUSAL FOR DIAGNOSIS AND TREATMENT 2023-10-25 18:20:00 Doctor Unassigned, [facility] NOTICE OF PRIVACY PRACTICES 2023-10-25 18:19:28 Doctor Unassigned, [facility] Encounters Start Date/Time End Date/Time Encounter Type Admission Type Attending [facility] Care Facility Care Department Encounter ID Source 2024-11-01 10:14:00 Outpatient Laurel Hughes [facility] [id number] [facility] 2024-08-15 08:03:00 Outpatient Laurel Hughes [facility] [id number] [facility] 2023-08-15 15:27:00 Outpatient Laurel Hughes [facility] [id number] [facility] 2023-08-01 10:23:00 Outpatient Laurel Hughes [facility] [id number] [facility] 2023-07-29 12:16:00 Outpatient [facility] [id number] [facility] 2023-07-28 08:47:00 Outpatient Ninoska Hughes [facility] [id number] [facility] 2023-01-20 13:27:00 Outpatient Ninoska Hughes [facility] [id number] [facility] 2023-01-19 11:55:00 Outpatient Deandra Butler [facility] [id number] [facility] 2022-06-17 09:16:00 Outpatient Guevara, Na [facility] [id number] [facility] 2021-11-11 14:12:56 Outpatient Guevara, Na [facility] [id number] [facility] 2021-11-11 13:33:33 Outpatient Guevara, Na [facility] [id number] [facility] 2021-11-11 12:31:11 Outpatient Guevara, Na [facility] [id number] [facility] 2021-11-11 12:28:35 Outpatient Guevara, Na [facility] [id number] [facility] 2021-11-11 12:27:34 Outpatient Guevara, Na [facility] [id number] [facility] 2021-11-11 12:26:12 Outpatient Guevara, Na [facility] [id number] [facility] 2021-11-11 12:01:22 Outpatient Guevara, Na [facility] [id number] [facility] 2021-11-11 11:58:29 Outpatient Guevara, Na [facility] [id number] [facility] 2021-11-11 11:37:41 Outpatient Iwona Guevara [facility] [id number] [facility] 2021-11-11 11:09:33 Outpatient Iwona Guevara [facility] [id number] [facility] 2025-05-02 00:00:00 2025-05-02 00:00:00 (TEL) [facility] [id number] [facility] 2025-01-17 00:00:00 2025-01-17 00:00:00 (TEL) [facility] [id number] [facility] 2024-11-19 00:00:00 2024-11-19 00:00:00 OFFICE VISIT ESTAB PT LEVEL 4 [facility] [id number] [facility] 2024-11-19 00:00:00 2024-11-19 00:00:00 SUB ANNUAL [facility] VISIT [facility] [id number] [facility] 2024-11-02 00:00:00 2024-11-02 00:00:00 OFFICE VISIT ESTAB PT LEVEL 3 [facility] [id number] [facility] 2024-10-15 00:00:00 2024-10-15 00:00:00 (TEL) [facility] [id number] [facility] 2024-09-21 00:00:00 2024-09-21 00:00:00 OFFICE VISIT ESTAB PT LEVEL 4 [facility] [id number] [facility] 2024-08-28 17:41:00 2024-08-28 19:37:00 Emergency Monster Walton [facility] [id number] [facility] 2024-08-25 07:26:00 2024-08-25 09:32:00 Emergency DANNY ALBRIGHT JOSEPH [facility] ERT [id number] [facility] 2024-08-25 07:26:00 2024-08-25 09:32:00 Emergency Danny Aldrich Paul [facility] [id number]..[id number] [facility] 2024-08-17 00:00:00 2024-08-17 00:00:00 OFFICE VISIT ESTAB PT LEVEL 4 [facility] [id number] [facility] 2024-04-09 00:00:00 2024-04-09 00:00:00 (TEL) [facility]C [facility] [id number] [facility] 2024-04-05 00:00:00 2024-04-05 00:00:00 (TEL) [facility] [id number] [facility] 2024-02-15 00:00:00 2024-02-15 00:00:00 SUB ANNUAL [facility] VISIT [facility] ST[facility] [id number] [facility] 2024-02-15 00:00:00 2024-02-15 00:00:00 OFFICE VISIT ESTAB PT LEVEL 4 [facility] [id number] [facility] 2023-12-19 00:00:00 2023-12-19 00:00:00 (TEL) [facility]C [facility] [id number] [facility] 2023-10-25 12:27:00 2023-10-25 15:14:00 Emergency X KENIA ESCOBAR [facility] ERT [id number] [facility] 2023-10-25 12:27:00 2023-10-25 15:14:00 Emergency Kenia Escobar [facility] 1..[id number] [facility] 2023-08-16 00:00:00 2023-08-16 00:00:00 OFFICE VISIT ESTAB PT LEVEL 4 [facility] [id number] [facility] 2023-08-01 00:00:00 2023-08-01 00:00:00 OFFICE VISIT ESTAB PT LEVEL 4 [facility] [id number] [facility] 2023-08-01 00:00:00 2023-08-01 00:00:00 SUB ANNUAL [facility]LLNESS VISIT [facility] [id number] [facility] 2023-04-27 00:00:00 2023-04-27 00:00:00 OFFICE VISIT ESTAB PT LEVEL 4 [facility] [id number] [facility] 2023-04-27 00:00:00 2023-04-27 00:00:00 (TEL) STLMLC STLMLC [id number] [facility] 2023-04-27 00:00:00 2023-04-27 00:00:00 (TEL) STLMLC STLMLC [id number] [facility] 2023-03-24 00:00:00 2023-03-24 00:00:00 (TEL) STLMLC STLMLC [id number] [facility] 2023-01-19 00:00:00 2023-01-19 00:00:00 (TEL) STLMLC STLMLC [id number] [facility] 2022-08-17 00:00:00 2022-08-17 00:00:00 (TEL) STLMLC STLMLC [id number] [facility] 2022-08-09 00:00:00 2022-08-09 00:00:00 (TEL) STLMLC STLMLC [id number] [facility] 2022-07-15 00:00:00 2022-07-15 00:00:00 (TEL) STLMLC STLMLC [id number] [facility] 2022-06-22 00:00:00 2022-06-22 00:00:00 SUB ANNUAL MCR WELLNESS VISIT STLMLC STLMLC [id number] [facility] 2022-06-22 00:00:00 2022-06-22 00:00:00 (TEL) STLMLC STLMLC [id number] [facility] 2022-06-22 00:00:00 2022-06-22 00:00:00 OFFICE VISIT EST PT LEVEL 3 STLMLC STLMLC [id number] [facility] 2021-09-02 00:00:00 2021-09-02 00:00:00 OL DIG E/M SVC 11-20 MIN STLMLC STLMLC [id number] [facility] 2021-05-20 00:00:00 2021-05-20 00:00:00 Outpatient STLMLC STLMLC [id number] [facility] 2021-05-20 00:00:00 2021-05-20 00:00:00 Outpatient STLMLC STLMLC [id number] [facility] 2021-01-21 00:00:00 2021-01-21 00:00:00 Outpatient STLMLC STLMLC [id number] [facility] 2021-01-21 00:00:00 2021-01-21 00:00:00 Outpatient STLMLC STLMLC [id number] [facility] 2021-01-21 00:00:00 2021-01-21 00:00:00 Outpatient STLMLC STLMLC [id number] [facility] 2020-11-20 00:00:00 2020-11-20 00:00:00 Outpatient STLMLC STLMLC [id number] [facility] 2020-08-20 00:00:00 2020-08-20 00:00:00 Outpatient STLMLC STLMLC [id number] [facility] 2020-05-19 08:20:00 2020-05-19 08:20:00 [facility] [id number] [facility] 2020-04-22 13:23:00 2020-04-22 13:23:[address] [facility] [id number] [facility] 2019-12-10 09:21:00 2019-12-10 09:21:[address] [facility] [id number] [facility] 2019-12-10 08:00:00 2019-12-10 08:00:[address] [facility] [facility] [id number] [facility] 2019-10-15 08:51:00 2019-10-15 08:51:[address] [facility] [id number] [facility] 2019-09-17 09:40:00 2019-09-17 09:40:[address] [facility] [id number] [facility] 2019-09-03 08:05:00 2019-09-03 08:05:[address] [facility] [id number] [facility] 2019-06-11 09:20:00 2019-06-11 09:20:[address] [facility] [facility] [id number] [facility] 2019-01-11 14:02:00 2019-01-11 14:02:[address] [facility] [id number] [facility] 2019-01-10 16:38:00 2019-01-10 16:38:[address] [facility] [id number] [facility] 2018-11-07 09:30:00 2018-11-07 09:30:[address] [facility] [facility] [id number] [facility] 2018-09-28 08:05:00 2018-09-28 08:05:[address] [facility] [id number] [facility] 2018-08-21 00:00:00 2018-08-21 00:00:00 Outpatient [facility] [id number] [facility] Results Test Description Test Time Test Comments Results Result Co mments Source CT ABDOMEN PELVIS W [id number] 20:49:49EXAM: CT ABDOMEN AND PELVIS WITH CONTRAST HISTORY: 68-year-old female with acute abdominal pain nonlocalized leftlower quadrant COMPARISON: None. TECHNIQUE AND FINDINGS: Contiguous axial imaging fromthe level of the lungbases through the pubic symphysis was performed after the uncomplicatedadministration of intravenous contrast. Coronal and sagittalreconstructions were obtained. FINDINGS: LOWER THORAX: The lungs bases are clear. No cardiomegaly. LIVER: No focal hepatic lesions. ?No biliary ductal dilation. GALLBLADDER AND BILIARY TREE: No biliary ductal dilation. ?No gallbladderwall thickening. SPLEEN: No splenomegaly. PANCREAS: No ductal dilation or masses. ADRENAL GLANDS: No adrenal nodules. KIDNEYS: No hydronephrosis, stones, or masses. PERITONEUM AND RETROPERITONEUM: No free air or fluid. LYMPH NODES: No lymphadenopathy. GI TRACT: No dilation or wall thickening. Rectosigmoid diverticula withoutacute inflammation. PELVIS/BLADDER: The urinary bladder is decompressed with thick cruz. Theuterus is mild enlarged, had 0.5 cm long and in the uterine cavity there tobias 2.6 cm nodular den sity of uncertain if this corresponds to an endometrialproliferative process or a fibroid. The adnexa are unremarkable. VESSELS: Moderate aortoiliac atherosclerotic calcifications. BONES AND SOFT TISSUES: No suspicious lytic or sclerotic bony lesions.L5-S1 disc disease.[facility] BASIC METABOLIC PANEL (NA, K, CL, CO2, GLUCOSE, BUN, CREATININE, CA)2023-10-25 19:36:29* Test Item Value Reference Range Interpretation Comme nts NA (test code = 6381343895) 137 mmol/L 135-145 K (test code = 3657812524) 4.6 mmol/L 3.5-5.0 CL (test code = 6815062865) 105 mmol/L 98-108 CO2 TOTAL (test code = 4377366539) 26 mmol/L 23-31 AGAP (test code = 6890878381) 6 2-16 BUN (test code = 8791292835) 16 mg/dL 7-23 GLUCOSE (test code = 2263509400) 94 mg/dL 70-110 CREATININE (test code = 6008879031) 0.59 mg/dL 0.50-1.04 CALCIUM (test code = 6416676701) 9.6 mg/dL 8.6-10.6 eGFR (test code = 63110-7) 98.3 mL/min/1.73m2 CKD-EPI eGFR (20 21). Assuming creatinine has been stable day-to-day for at least three months, the eGFR indicates Category G1 (>= 90 mL/min/1.73 m2) [facility] (ALB,T.PRO,BILI T,BU/BC,ALT,AST,ALK PHOS)2023-10-25 19:36:29* Test Item Value Reference Range Interpretation Comme nts TOTAL BILI (test code = 3130291640) 0.9 mg/dL 0.1-1.1 BILI UNCON (test code = 2427524417) 0.6 mg/dL 0.1-1.1 BILI CONJ (test code = 2327725117) 0.0 mg/dL 0.0-0.3 T PROTEIN (test code = 6053736162) 7.9 g/dL 6.3-8.2 ALBUMIN (test code = 0540587406) 4.4 g/dL 3.5-5.0 ALK PHOS (test code = 8179335219) 78 U/L 34-122 ALTv (test code = 1742-6) 25 U/L 5-35 AST(SGOT) (test code = 8497991045) 39 U/L 13-40 Lab Interpretation (test cod e = 93193-6) [facility] 19:36:28* Test Item Value Reference Range Interpretation Comme nts LIPASE (test code = 5549406598) 114 U/L 0-220 Lab Interpretation (test cod e = 17025-2) [facility] [id number] 19:25:26* Test Item Value Reference Range Interpretation Comme nts WBC (test code = 6690-2) 10.45 See_Comment [Automated messa ge] The system which generated this result transmitted reference range: 4.30 - 11.10 10*3/?L. The reference range was not used to interpret this result as normal/abnormal. RBC (test code = 789-8) 4.86 See_Comment [Automated messa ge] The system which generated this result transmitted reference range: 3.93 - 5.25 10*6/?L. The reference range was not used to interpret this result as normal/abnormal. HGB (test code = 718-7) 14.1 g/dL 11.6-15.0 HCT (test code = 4544-3) 42.4 % 35.7-45.2 MCV (test code = 787-2) 87.2 fL 80.6-95.5 MCH (test code = 785-6) 29.0 pg 25.9-32.8 MCHC (test code = 786-4) 33.3 g/dL 31.6-35.1 RDW-SD (test code = 31333-8) 42.6 fL 39.0-49.9 RDW-CV (test code = 788-0) 13.3 % 12.0-15.5 PLT (test code = 777-3) 260 See_Comment [Automated [employer] ge] The system which generated this result transmitted reference range: 166 - 358 10*3/?L. The reference range was not used to interpret this result as normal/abnormal. MPV (test code = 80403-8) 11.4 fL 9.5-12.9 NRBC/100 WBC (test code = 9068451527) 0.0 See_Comment [Automated [employer] ssage] The system which generated this result transmitted reference range: 0.0 - 10.0 /100 WBCs. The reference range was not used to interpret this result as normal/abnormal. NRBC x10^3 (test code = 3093275718) See_Comment [Automated [employer] ge] The system which generated this result transmitted reference range: 10*3/?L. The reference range was not used to interpret this result as normal/abnormal. GRAN MAT (NEUT) % (test code = 770-8) 64.3 % IMM GRAN % (test code = 8879269181) 0.30 % LYMPH % (test code = 736-9) 25.0 % MONO % (test code = 5905-5) 7.3 % EOS % (test code = 713-8) 2.2 % BASO % (test code = 706-2) 0.9 % GRAN MAT x10^3(ANC) (test code = 9179943558) 6.73 10*3/uL 1.88-7.09 IMM GRAN x10^3 (test code = 6739701609) 0.03 10*3/uL 0.00-0.06 LYMPH x10^3 (test code = 731-0) 2.61 10*3/uL 1.32-3.29 MONO x10^3 (test code = 742-7) 0.76 10*3/uL 0.33-0.92 EOS x10^3 (test code = 711-2) 0.23 10*3/uL 0.03-0.39 BASO x10^3 (test code = 704-7) 0.09 10*3/uL 0.01-0.07 H Lab Interpretation (test code = 70241-8) [facility] + LACTIC [id number] 19:03:21* Test Item Value Reference Range Interpretation Comme nts PH (test code = 0012743427) 7.48 7.32-7.42 H PCO2 LEODAN (test code = 1506779615) 32 See_Comment L [Automated messa ge] The system which generated this result transmitted reference range: 41 - 51 mmHg. The reference range was not used to interpret this result as normal/abnormal. PO2 LEODAN (test code = 6653467421) 85 See_Comment HH [Automated messa ge] The system which generated this result transmitted reference range: 25 - 40 mmHg. The reference range was not used to interpret this result as normal/abnormal. HCO3 LEODAN (test code = 0685059892) 24 See_Comment [Automated messa ge] The system which generated this result transmitted reference range: 24 - 28 mEq/L. The reference range was not used to interpret this result as normal/abnormal. AC VBE(BEAKER) (test code = 9343791058) 0.9 mEq/L THB LEODAN (test code = 2192097222) 15.0 g/dL 12.0-16.0 %O2HB LEODAN (test code = 4165900520) 95.6 % 52.0-63.0 H %COHB LEODAN (test code = 3112058142) 1.1 % 0.0-1.5 %METHB LEODAN (test code = 2941315291) 0.3 % 0.4-1.5 L VOL%O2 LEODAN (test code = 6395921890) 20.2 % 6.0-12.0 H NA (test code = 4175201966) 136 mmol/L 135-145 K+ (test code = 1518445068) 6.0 mmol/L 3.5-5.0 H AC CA IONZ (test code = 6619344063) 4.10 mg/dL 4.50-5.30 L GLUCOSE (test code = 2393893253) 97 mg/dL 70-110 LACTIC ACID (test code = 8202646772) 1.10 mmol/L 0.50-2.20 Lab Interpretation (test code = 45650-2) Abnormal [facility] W/AUTO [id number] 00:00:00* Test Item Value Reference Range Interpretation Comme nts NUCLEATED RBCS (test code = 46242-6) 0.0 /100 WBC'S See_Comment [Automated messa ge] The system which generated this result transmitted reference range: 0.0 /100 WBC'S. The reference range was not used to interpret this result as normal/abnormal. ABSOLUTE EOSINOPHILS (test code = 99874-9) 0.23 K/UL See_Comment [Automated messa ge] The system which generated this result transmitted reference range: 0.00-0.50 K/UL. The reference range was not used to interpret this result as normal/abnormal. ABSOLUTE LYMPHOCYTES (test code = 15685-2) 2.53 K/UL See_Comment [Automated messa ge] The system which generated this result transmitted reference range: 1.00-4.00 K/UL. The reference range was not used to interpret this result as normal/abnormal. ABSOLUTE MONOCYTES (test code = 94444-6) 0.74 K/UL See_Comment [Automated messa ge] The system which generated this result transmitted reference range: 0.20-1.00 K/UL. The reference range was not used to interpret this result as normal/abnormal. ABSOLUTE NEUTROPHILS (test code = 10267-7) 5.45 K/UL See_Comment [Automated messa ge] The system which generated this result transmitted reference range: 1.50-7.50 K/UL. The reference range was not used to interpret this result as normal/abnormal. BASOPHILS (test code = 45249-0) 1.0 % EOSINOPHILS (test code = 89713-0) 2.5 % HEMATOCRIT (test code = 87456-2) 41.2 % See_Comment [Automated messa ge] The system which generated this result transmitted reference range: 34.0-45.0 %. The reference range was not used to interpret this result as normal/abnormal. HEMOGLOBIN (test code = 718-7) 14.3 G/DL See_Comment [Automated messa ge] The system which generated this result transmitted reference range: 11.5-15.5 G/DL. The reference range was not used to interpret this result as normal/abnormal. LYMPHOCYTES (test code = 16830-1) 27.9 % MCH (test code = 95305-2) 30.2 PG See_Comment [Automated messa ge] The system which generated this result transmitted reference range: 25.0-33.0 PG. The reference range was not used to interpret this result as normal/abnormal. MCHC (test code = 14538-3) 34.7 G/DL See_Comment [Automated messa ge] The system which generated this result transmitted reference range: 31.0-36.0 G/DL. The reference range was not used to interpret this result as normal/abnormal. MCV (test code = 06741-4) 86.9 fL See_Comment [Automated messa ge] The system which generated this result transmitted reference range: 80.0-99.0 fL. The reference range was not used to interpret this result as normal/abnormal. MONOCYTES (test code = 08635-9) 8.2 % NEUTROPHILS (test code = 88670-2) 60.2 % PLATELET COUNT (test code = 04260-9) 256 K/UL See_Comment [Automated messa ge] The system which generated this result transmitted reference range: 130-400 K/UL. The reference range was not used to interpret this result as normal/abnormal. RBC (test code = 46577-3) 4.74 M/UL See_Comment [Automated messa ge] The system which generated this result transmitted reference range: 3.80-5.40 M/UL. The reference range was not used to interpret this result as normal/abnormal. RDW (test code = 06602-6) 12.7 % See_Comment [Automated messa ge] The system which generated this result transmitted reference range: 11.5-15.0 %. The reference range was not used to interpret this result as normal/abnormal. WBC (test code = 01635-7) 9.1 K/UL See_Comment [Automated messa ge] The system which generated this result transmitted reference range: 3.5-11.0 K/UL. The reference range was not used to interpret this result as normal/abnormal. 3D SCR SANJEEV BILAT W/CAD3D SCR SANJEEV BILAT W/CAD3D SCR SANJEEV BILAT W/CAD3D SCR SANJEEV BILAT W/CADDEXA, BONE DENSITY AXIAL SKELEDEXA, BONE DENSITY AXIAL SKELEDEXA, BONE DENSITY AXIAL SKELEDEXA, BONE DENSITY AXIAL SKELE Notes Date/Time Note Provider Source 2024-08-28 19:36:56 Pt given printed and verbal discharge instructions regarding acute sinusitis, encouraged hydration. Prescriptions provided. Discussed antibiotic therapy and to take until all completed unless adverse reaction occurs - if occurs, discontinue medication and follow up with pcp/seek medical attention Pt verbalized understanding of instructions, pt awake alert oriented, resp reg unlabored, skin w/d, color appropriate for race, moves all ext well,pt encouraged to follow up with pcp. Advised to seek medical attention for new/prolonged/worsening of symptoms. Awake, alert oriented, resp reg unlabored, skin w/d, pt leaving amb with steady gait, in no apparent distress. IN Galvan RN [facility] 2024-08-28 17:39:49 Patient to ED for cough, sore throat, and runny nose for the past couple days. IN Dutton RN [facility] 2024-08-25 09:31:08 Pt given printed and verbal discharge instructions regarding acute conjunctivitis L eye. Prescriptions provided Discussed antibiotic therapy and to take until all completed unless adverse reaction occurs - if occurs, discontinue medication and follow up with pcp/seek medical attention Pt verbalized understanding of instructions, pt awake alert oriented, resp reg unlabored, skin w/d, color appropriate for race, moves all ext well,pt encouraged to follow up with pcp as needed. Advised to seek medical attention for new/prolonged/worsening of symptoms. No adverse reaction to meds given in ER noted upon discharge Awake, alert oriented, resp reg unlabored, skin w/d, pt leaving amb with steady gait, in no apparent distress, IN Sheppard RN [facility] 2024-08-25 07:25:02 Diana Dinh is a 69 year old female c/o sinus drainage and green discharge and matting to left eye for 2 days IN Panda RN [facility] 2024-08-25 07:20:00 [facility] Emergency Department Note Patient Name: Diana Dinh Date of : 1955 69 year old female Treatment Room: [facility] Primary Care Physician: Laurel Hughes Patient Escorted by: Self [9] Mode of Arrival: Personal means [1] EMS Treatment Prior to ED Arrival: Travel and Exposure Screening: Symptoms Does patient have any of these symptoms?: (not recorded) Exposure Screening Has patient had contact with someone with a communicable disease in the last month?: (not recorded) Diseases exposed to:: (not recorded) Is Patient ?: (not recorded) Exposure Date: (not recorded) Chief Complaint: Chief Complaint Patient presents with Sinus Problem Eye Problem Green discharge History of Present Illness: Very pleasant lady presents for two days of left eye redness and thick discharge, matting her eyes closed in the morning. Reports itching but no pain, change in vision, or difficulty w/ eye ROM. History provided by: Patient Past Medical History/Immunizations: No past medical history on file. Allergies: No Known Allergies Past Social History: Substance & Sexual Activity No substance use or sexual activity history on file. Past Surgical History: No past surgical history on file. Review of Systems: Review of Systems Constitutional: Negative for activity change, appetite change, chills, diaphoresis, fatigue and fever. HENT: Negative for congestion, ear discharge, ear pain, facial swelling, hearing loss, sore throat, tinnitus, trouble swallowing and voice change. Eyes: Positive for discharge, redness and itching. Negative for photophobia, pain and visual disturbance. Respiratory: Negative for apnea, cough, choking, chest tightness, shortness of breath and stridor. Breasts: Negative for discharge. Cardiovascular: Negative for chest pain, palpitations and leg swelling. Gastrointestinal: Negative for abdominal distention, abdominal pain, blood in stool, diarrhea, nausea and vomiting. Genitourinary: Negative for dysuria, frequency, hematuria, flank pain, enuresis and difficulty urinating. Musculoskeletal: Negative for arthralgias, back pain, gait problem, joint swelling, myalgias, neck pain and neck stiffness. Skin: Negative for color change, pallor, rash and wound. Neurological: Negative for dizziness, syncope, facial asymmetry, speech difficulty, weakness, light-headedness and headaches. Psychiatric/Behavioral: Negative for agitation, confusion, hallucinations and self-injury. The patient is not nervous/anxious. Hematological: Negative for adenopathy, cold intolerance and heat intolerance. Does not bruise/bleed easily. Endocrine: Negative for cold intolerance, heat intolerance, polydipsia and polyphagia. Physical Exam: ED Triage Vitals [08/25/24 0725] Weight 103.2 kg (227 lb 8 oz) Actual or estimated Actual Height 1.676 m (5' 6") BP (!) 144/72 Pulse 90 Resp 14 Temp 37.1 ?C (98.8 ?F) Temp source Oral SpO2 99 % Measured on Room air Physical Exam Constitutional: General: She is not in acute distress. Appearance: She is well-developed. She is not ill-appearing, toxic-appearing or diaphoretic. HENT: Head: Normocephalic and atraumatic. Right Ear: External ear normal. Left Ear: External ear normal. Eyes: General: No scleral icterus. Right eye: No discharge. Left eye: Discharge present. Extraocular Movements: Extraocular movements intact. Pupils: Pupils are equal, round, and reactive to light. Comments: Nl eye ROM; left eye +conjunctivitis; no corneal ulceration on magnified exam; neg fluorescein exam, neg sidel's. Neck: Trachea: No tracheal deviation. Cardiovascular: Rate and Rhythm: Normal rate and regular rhythm. Heart sounds: Normal heart sounds. Pulmonary: Effort: Pulmonary effort is normal. Abdominal: General: There is no distension. Tenderness: There is no abdominal tenderness. Musculoskeletal: General: Normal range of motion. Cervical back: Normal range of motion and neck supple. Skin: General: Skin is warm. Coloration: Skin is not pale. Findings: No erythema or rash. Neurological: General: No focal deficit present. Mental Status: She is alert. Motor: No abnormal muscle tone. Psychiatric: Behavior: Behavior normal. Thought Content: Thought content normal. Judgment: Judgment normal. Radiology: No orders to display Lab Results: Lab Results - No data to display EKG: If EKG completed, see Procedure Note. Orders and Treatments: No orders of the defined types were placed in this encounter. Orders Placed This Encounter Medications proparacaine (ALCAINE) 0.5 % ophthalmic solution 2 Drop fluorescein (FUL-DELLA) ophthalmic strip 1 mg ciprofloxacin HCl 0.3 % opthalmic drops First Provider Eval: ED Events Date/Time Event User Comments 08/25/24 0747 Medical Screening Begins DANNY ALDRICH MD P -- 08/25/24 0845 First Provider Evaluation DANNY ALDRICH MD -- ED COURSE Diagnosis/Impression as of 08/25/24 0916 Acute conjunctivitis of left eye, unspecified acute conjunctivitis type Procedures: Procedures MDM: Medical Decision Making DDx incl viral v bacterial v allergic conjunctivitis; no evidence of corneal ulcer or abrasion or keratitis. D/w pt results, rec plan of care and f/u, and red flags for return. Risk Prescription drug management. Flowsheet Documentation: Disposition/Condition: ED Disposition ED Disposition Discharge Condition Stable Comment -- Discharge Medications: Patient's Medications START taking these medications CIPROFLOXACIN HCL 0.3 % OPTHALMIC DROPS Place 2 Drops in left eye 4 (four) times daily. CONTINUE taking these medications which have NOT CHANGED No medications on file START taking Modified Medications as Prescribed No medications on file STOP taking these medications No medications on file Follow-up: Electronically signed by: Danny Aldrich MD 08/25/24915 [facility] 2023-10-25 15:13:01 Pt discharged home. Pt given all education and information regarding s/s of worsening condition, prescription use and purpose, as well as follow up importance. Pt verbalized understanding. Vss. Alert and ambulatory off unit. [facility] Ev Lanza RN [facility] 2023-10-25 14:56:34 Upon shift arrival pt vss, states pain has "decreased", alert and sitting quietly in bed, no needs at this time. Will continue to monitor. [facility] 2023-10-25 12:19:00 Patient came in with complaints of LLQ abdominal pain since 1 week. Denies n/v/d. [facility]
[2025-05-29] MEDS ORDERED: NA CHLORIDE 0.9% 1,000 ML ONE (04:55)
[2025-05-29 05:07] LABS: Absolute Lymphocytes (CBC) 2.0 K/uL (0.7-4.9); Hematocrit 40.0 % (36.0-45.0); Hemoglobin 13.8 g/dL (12.0-15.0); MCH 29.4 pg (27.0-35.0); MCHC 34.6 g/dL (32.0-36.0); MCV 85.0 fL (80-100); MPV 9.5 fL (7.6-11.3); Nucleated RBC Absolute Count 0.0 (0-0); Nucleated Red Blood Cells % 0.1 % (0-0); RBC Red Blood Cell Count 4.71 M/uL (3.86-4.86); White Blood Count 9.70 thou/uL (4.3-10.9)
[2025-05-29] MEDS ORDERED: KETOROLAC 30 MG/ML INJ ONE (05:23)
[2025-05-29] MEDS ORDERED: DIAZEPAM 10 MG/2 ML INJ SYRINGE ONE (05:23)
[2025-05-29] MEDS ORDERED: ONDANSETRON 4 MG/2 ML VIAL ONE (05:23)
[2025-05-29 05:25] LABS: ALT/SGPT 24.0 U/L (13-56); AST/SGOT 14.0 U/L (15-37); Albumin 3.6 g/dL (3.4-5.0); Albumin/Globulin Ratio 1.1 (1.1-1.8); Alkaline Phosphatase 100.0 U/L (45-117); Anion Gap 11.5 mEq/L (5.0-15.0); BUN Blood Urea Nitrogen 17.0 mg/dL (7-18); Globulin 3.2 g/dL (2.3-3.5); Glucose Level 124.0 mg/dL (74-106); Lipase 33.0 U/L (13-75); Potassium 3.5 mEq/L (3.5-5.1)
[2025-05-29 05:38] LABS: Sqamous Epithelial <5 /HPF (None Seen); Urine Micro Reflex YN NO BILL MICROSCOPIC; Urine WBC Clump Rare /HPF (None Seen); Urine Yeast (Budding) Trace /HPF (None Seen)
[2025-05-29] MEDS ORDERED: CEFTRIAXONE 1000 MG/VIAL ONE (05:47)
--- NOTE | 2025-05-29 07:08 | RAD REPORT ---
CT ABDOMEN PELVIS WITH IV CONTRAST CLINICAL INDICATION: Abdominal pain COMPARISON: CT abdomen pelvis 10/24/2017 TECHNIQUE: CT images of the abdomen and pelvis obtained following administration of intravenous contr ast. Multiplanar reformats were provided. Dose-optimization techniques such as automated exposure control, iterative reconstruction, and mA and/or kV adjustment for patient size was utilized for this examination. FINDINGS: LOWER CHEST: Unremarkable. LIVER: Diffuse fatty infiltration of the liver. No focal lesion. BILIARY: Unremarkable. PANCREAS: Unremarkable. SPLEEN: Unremarkable. ADRENALS: Unremarkable. KIDNEYS/URETERS: Unremarkable. STOMACH: Small hiatal hernia. BOWEL: Unremarkable. APPENDIX: Normal. PERITONEUM/RETROPERITONEUM: Unremarkable. LYMPH NODES: Unremarkable. URINARY BLADDER: Unremarkable. REPRODUCTIVE: Endometrium is thickened with an enhancing 2.2 cm nodule (previously up to 1.6 cm). Fin dings may represent a polyp or neoplasm. VASCULATURE: Moderate arthrosclerotic calcification of abdominal aorta without aneurysm. ABDOMINAL/PELVIC WALL: Unremarkable. BONES: Multilevel moderate degenerative changes of lumbar spine. Wiix-rm-mrcezktt central canal and foraminal stenosis at L3-4 level secondary to prominent disc osteophyte complex. IMPRESSION: 1. Endometrium is thickened with an enhancing 2.2 cm nodule (previously up to 1.6 cm). Findings may represent a polyp or neoplasm. Follow-up with pelvic ultrasound is recommended. 2. Hepatic steatosis. Electronically signed by: Lois Perry MD 05/29/2025 06:57 AM CDT Due to temporary technical issues with the PACS/Reframe It reporting system, reports are being nick d by the in-house radiologist without review as a courtesy to ensure prompt reporting the interpreting radiologist is fully responsible for the content of the report. Transcribed Date/Time: 05/29/2025 7:08 AM
--- NOTE | 2025-05-29 07:35 | ER ---
Nurse's Notes [facility] Name: Carla Amaro Age: 70 yrs Sex: Female : 1955 Arrival Date: 05/29/2025 Time: 04:35 Bed 8 Private MD: Diagnosis: Acute urinary tract infection, acute right lower back pain, degenerative disc disease lumbar spine, uterine nodule, endometrial nodule Presentation: 05/29 04:37 Chief complaint: EMS states: Pt presents to the ED with right sided back pain and kd3 muscle spasms that started yesterday and left sided chest pain that started today. Pt only has a history of htn and takes lisinopril. Coronavirus screen: Vaccine status: Patient reports being unvaccinated. Ebola Screen: No symptoms or risks identified at this time. Initial Sepsis Screen: Does the patient meet any 2 criteria? No. Patient's initial sepsis screen is negative. Does the patient have a suspected source of infection? No. Patient's initial sepsis screen is negative. Risk Assessment: Do you want to hurt yourself or someone else? Patient reports no desire to harm self or others. Onset of symptoms was May 28, 2025. 04:37 Method Of Arrival: EMS: [facility] kd3 04:37 Acuity: DEACON 3 kd3 Triage Assessment: 04:38 General: Appears uncomfortable, Behavior is anxious, crying. Pain: Complains of pain in kd3 right mid back and anterior aspect of left upper chest. Musculoskeletal: Circulation, motion, and sensation intact. Historical: - Allergies: 04:38 No Known Allergies; kd3 - Immunization history:: Adult Immunizations up to date. - Infectious Disease History:: Denies. - Social history:: Smoking status: Patient denies any tobacco usage or history of. - Family history:: not pertinent. Screenin:32 [facility] ED Fall Risk Assessment (Adult) History of falling in the last 3 months, kd3 including since admission No falls in past 3 months (0 pts) Confusion or Disorientation No (0 pts) Intoxicated or Sedated No (0 pts) Impaired Gait No (0 pts) Mobility Assist Device Used No (0 pt) Altered Elimination No (0 pt) Score/Fall Risk Level 0 - 2 = Low Risk Maintained a safe environment. Abuse screen: Denies threats or abuse. Denies injuries from another. Nutritional screening: No deficits noted. Tuberculosis screening: No symptoms or risk factors identified. Assessment: 05:30 General: Appears uncomfortable, Behavior is crying. Pain: Complains of pain in anterior kd3 aspect of left upper chest and right mid back. Neuro: Level of Consciousness is awake, alert, obeys commands, Oriented to person, place, time, situation. Cardiovascular: Patient's skin is warm and dry. 07:49 Reassessment: Patient appears in no apparent distress at this time. Patient and/or ph family updated on plan of care and expected duration. Pain level reassessed. Patient is alert, oriented x 3, equal unlabored respirations, skin warm/dry/pink. Spoke w/ pt's daughter Maki who is on the way to pick her up. Vital Signs: 04:39 Weight 108.86 kg; Height 5 ft. 6 in. ; kd3 04:45 BP 138 / 66; Pulse 67; Resp 18; Temp 98.2(O); Pulse Ox 99% on R/A; kd3 05:49 BP 112 / 56; Pulse 69; Resp 13 S; Pulse Ox 75% on R/A; lg3 05:51 Pulse Ox 95% on 3 lpm NC; lg3 06:32 BP 126 / 61; Pulse 67; Resp 18; Pulse Ox 100% on 4 lpm NC; kd3 07:50 BP 137 / 82; Pulse 68; Resp 18; Temp 97.9; Pulse Ox 100% on R/A; ph 04:39 Body Mass Index 38.74 (108.86 kg, 167.64 cm) kd3 05:49 PT placed on 3L NC at this time lg3 [place] Coma Score: 05:27 Eye Response: spontaneous(4). Motor Response: obeys commands(6). Verbal Response: sp4 oriented(5). Total: 15. ED Course: 04:36 Patient arrived in ED. jj6 04:37 Valente Nickerson MD is Attending Physician. sp4 04:37 Jesika Concepcion, TANISHA is Primary Nurse. kd3 04:38 Triage completed. kd3 04:39 Arm band placed on right wrist. kd3 04:48 Radiology exam delayed due to lab results not completed at this time. (BUN/Creatinine). eh 05:04 Maintain EMS IV. Dressing intact. Good blood return noted. Site clean \T\ dry. Gauge \T\ kd 3 site: 20 g L A/C . Flushed with 10 mL NS. 05:07 CBC with Diff Sent. ts3 05:07 Initial lab(s) drawn, by label remover, sent to lab. ts3 05:08 Urine collected: clean catch specimen, sent to lab. ts3 05:25 EKG done, by radiologic technician. ts3 05:51 Oxygen administration via nasal cannula \T\ 3L/min. lg3 06:02 CT Abd/Pelvis - IV Contrast Only In Process Unspecified. EDMS 06:32 No provider procedures requiring assistance completed. kd3 06:33 Patient has correct armband on for positive identification. kd3 07:31 Akilah Walters MD is Referral Physician. sp4 07:50 IV discontinued, intact, bleeding controlled, No redness/swelling at site. Pressure ph dressing applied. Administered Medications: 05:30 Drug: NS 0.9% IV 1000 ml IV at 1 bolus Per protocol; to be given as a bolus over 60 lg3 minutes Route: IV; Rate: 1 bolus; Site: left antecubital; 05:30 Drug: Ketorolac IVP 30 mg IVP once Route: IVP; Site: left antecubital; lg3 05:51 Follow up: Response: No adverse reaction lg3 05:30 Drug: Diazepam IVP 5 mg IVP once Route: IVP; Site: left antecubital; lg3 05:51 Follow up: Response: No adverse reaction; Marked relief of symptoms; RASS: Drowsy (-1) lg3 05:30 Drug: Ondansetron IVP 8 mg IVP once; over 2 minutes Route: IVP; Site: left antecubital; lg3 05:51 Follow up: Response: No adverse reaction lg3 06:35 Drug: Rocephin - Rocephin (cefTRIAXone) IVPB 1 grams IVPB once over 30 mins; (mix in 50 kd3 mL NS) Route: IVPB; Infused Over: 30 mins; Site: left antecubital; 07:49 Follow up: Response: No adverse reaction; IV Status: Completed infusion ph 07:48 Drug: HYDROcodone-acetaminophen PO 5 mg-325 mg 2 tabs PO once Route: PO; ph 07:49 Follow up: Response: No adverse reaction ph Medication: 06:32 VIS not applicable for this client. kd3 Outcome: 07:34 Discharge ordered by . theron 07:50 Discharged to home via wheelchair, with family, ph 07:50 Condition: good 07:50 Discharge instructions given to patient, Instructed on discharge instructions, follow up and referral plans. medication usage, Demonstrated understanding of instructions, follow-up care, medications, Prescriptions given X 4, 08:14 Patient left the ED. ph Signatures: Dispatcher [employer] EDMS Hector Landaverde Patricia, RN RN Able, Jia RN RN lg3 Ewa Whitney6 Jesika Concepcion RN RN [email or web address] Valente Nickerson MD MD sp4 Richa Haq 3
--- NOTE | 2025-05-29 07:35 | EDPHYS ---
Physician Documentation [facility] Name: Carla Amaro Age: 70 yrs Sex: Female : 1955 Arrival Date: 05/29/2025 Time: 04:35 Bed 8 Private MD: ED Physician Valente Nickerson HPI: 05/29 04:37 This 70 yrs old Female presents to ER via Unassigned with complaints of Back sp4 Pain. 05:27 78-year-old female presents with 3 days of moderate right lower back pain associated sp4 with mild chest pain. Historical: - Allergies: 04:38 No Known Allergies; kd3 - Immunization history:: Adult Immunizations up to date. - Infectious Disease History:: Denies. - Social history:: Smoking status: Patient denies any tobacco usage or history of. - Family history:: not pertinent. ROS: 05:27 Constitutional: Negative for fever, chills, and weight loss, positive back pain sp4 positive chest pain Eyes: Negative for injury, pain, redness, and discharge, ENT: Negative for injury, pain, and discharge, Neck: Negative for injury, pain, and swelling, Cardiovascular: Negative for chest pain, palpitations, and edema, Respiratory: Negative for shortness of breath, cough, wheezing, and pleuritic chest pain, Abdomen/GI: Negative for abdominal pain, nausea, vomiting, diarrhea, and constipation, Back: Negative for injury and pain, 05:27 All other systems are negative, Exam: 05:27 Constitutional: This is a well developed, well nourished patient who is awake, alert, sp4 and in no acute distress. Head/Face: Normocephalic, atraumatic. Eyes: Pupils equal round and reactive to light, extra-ocular motions intact. Lids and lashes normal. Conjunctiva and sclera are not injected. Cornea within normal limits. Periorbital areas with no swelling, redness, or edema. ENT: Nares patent. No nasal discharge, no septal abnormalities noted. Tympanic membranes are normal and external auditory canals are clear. Oropharynx with no redness, swelling, or masses, exudates, or evidence of obstruction, uvula midline. Mucous membranes moist. Neck: Trachea midline, no thyromegaly or masses palpated, and no cervical lymphadenopathy. Supple, full range of motion without nuchal rigidity, or vertebral point tenderness. Chest/axilla: Normal chest wall appearance and motion. Nontender with no deformity. No lesions are appreciated. Cardiovascular: Regular rate and rhythm with a normal S1 and S2. No gallops, murmurs, or rubs. No pulse deficits. Respiratory: Lungs have equal breath sounds bilaterally, clear to auscultation and percussion. No rales, rhonchi or wheezes noted. No increased work of breathing, no retractions or nasal flaring. Abdomen/GI: Soft, with normal bowel sounds. No distension or tympany. No guarding or rebound. No evidence of tenderness throughout. Back: No spinal tenderness. No costovertebral tenderness. Skin: Warm, dry with normal turgor. Normal color with no rashes, no lesions, and no evidence of cellulitis. MS/ Extremity: Pulses equal, no cyanosis. Neurovascular intact. Full, normal range of motion. Neuro: Awake and alert, GCS 15, oriented to person, place, time, and situation. Cranial nerves II-XII grossly intact. Motor strength 5/5 in all extremities. Sensory grossly intact. Psych: Awake, alert, with orientation to person, place and time. Behavior, mood, and affect are within normal limits 05:27 ECG was reviewed by the Attending Physician. EKG 0 520 normal sinus rhythm rate 64 normal EKG Vital Signs: 04:39 Weight 108.86 kg; Height 5 ft. 6 in. ; kd3 04:45 BP 138 / 66; Pulse 67; Resp 18; Temp 98.2(O); Pulse Ox 99% on R/A; kd3 05:49 BP 112 / 56; Pulse 69; Resp 13 S; Pulse Ox 75% on R/A; lg3 05:51 Pulse Ox 95% on 3 lpm NC; lg3 06:32 BP 126 / 61; Pulse 67; Resp 18; Pulse Ox 100% on 4 lpm NC; kd3 07:50 BP 137 / 82; Pulse 68; Resp 18; Temp 97.9; Pulse Ox 100% on R/A; ph 04:39 Body Mass Index 38.74 (108.86 kg, 167.64 cm) kd3 05:49 PT placed on 3L NC at this time lg3 [place] Coma Score: 05:27 Eye Response: spontaneous(4). Motor Response: obeys commands(6). Verbal Response: sp4 oriented(5). Total: 15. MDM: 04:39 Medical Screening Exam initiated sp4 05:30 Differential diagnosis: Basilar Pneumonia Cholelithiasis chronic back pain, Fatigue sp4 Fracture Myeloma Neoplasm Obesity Peptic Ulcer. Data reviewed: vital signs, nurses notes, radiologic studies, CT scan. 07:34 ED course: CTABDOMEN PELVIS WITH IV CONTRAST CLINICAL INDICATION: Abdominal pain sp4 COMPARISON: CT abdomen pelvis 10/24/2017 TECHNIQUE: CT images of the abdomen and pelvis obtained following administration of intravenous contrast. Multiplanar reformats were provided. Dose-optimization techniques such as automated exposure control, iterative reconstruction, and mA and/or kV adjustment for patient size was utilized for this examination. FINDINGS: LOWER CHEST: Unremarkable. LIVER: Diffuse fatty infiltration of the liver. No focal lesion. BILIARY: Unremarkable. PANCREAS: Unremarkable. SPLEEN: Unremarkable. ADRENALS: Unremarkable. KIDNEYS/URETERS: Unremarkable. STOMACH: Small hiatal hernia. BOWEL: Unremarkable. APPENDIX: Normal. PERITONEUM/RETROPERITONEUM: Unremarkable. LYMPH NODES: Unremarkable. URINARYBLADDER: Unremarkable. REPRODUCTIVE: Endometrium is thickened with an enhancing 2.2 cm nodule (previously up to 1.6 cm). Findings may represent a polyp or neoplasm. VASCULATURE: Moderate arthrosclerotic calcification of abdominal aorta without aneurysm. ABDOMINAL/PELVIC WALL: Unremarkable. BONES: Multilevel moderate degenerative changes of lumbar spine. Izhp-hl-zkdzomdy central canal and foraminal stenosis at L3-4 level secondary to prominent disc osteophyte complex. IMPRESSION: 1. Endometrium is thickened with an enhancing 2.2 cm nodule (previously up to 1.6 cm). Findings may represent a polyp or neoplasm. Follow-up with pelvic ultrasound is recommended. 2. Hepatic steatosis. . 05/29 04:37 Order name: CBC with Diff; Complete Time: 05:48 sp4 05/29 04:37 Order name: CMP; Complete Time: 05:48 sp4 05/29 04:37 Order name: Lipase; Complete Time: 05:48 sp4 05/29 04:37 Order name: UA W/ Microscopic; Complete Time: 05:48 sp4 05/29 04:37 Order name: CT Abd/Pelvis - IV Contrast Only sp4 05/29 04:37 Order name: IV Saline Lock; Complete Time: 05:07 sp4 05/29 04:37 Order name: Labs collected and sent; Complete Time: 05:08 sp4 05/29 05:17 Order name: EKG - Nurse/Tech; Complete Time: 05:18 sp4 EC:20 Rate is 64 beats/min. Rhythm is regular, Normal Sinus Rhythm. QRS [place] is Normal. VT sp4 interval is normal. QRS interval is normal. QT interval is normal. No Q waves. T waves are Normal. No ST changes noted. Clinical impression: No evidence of ischemia. Interpreted by me. Reviewed by me. Administered Medications: 05:30 Drug: NS 0.9% IV 1000 ml IV at 1 bolus Per protocol; to be given as a bolus over 60 lg3 minutes Route: IV; Rate: 1 bolus; Site: left antecubital; 05:30 Drug: Ketorolac IVP 30 mg IVP once Route: IVP; Site: left antecubital; lg3 05:51 Follow up: Response: No adverse reaction lg3 05:30 Drug: Diazepam IVP 5 mg IVP once Route: IVP; Site: left antecubital; lg3 05:51 Follow up: Response: No adverse reaction; Marked relief of symptoms; RASS: Drowsy (-1) lg3 05:30 Drug: Ondansetron IVP 8 mg IVP once; over 2 minutes Route: IVP; Site: left antecubital; lg3 05:51 Follow up: Response: No adverse reaction lg3 06:35 Drug: Rocephin - Rocephin (cefTRIAXone) IVPB 1 grams IVPB once over 30 mins; (mix in 50 kd3 mL NS) Route: IVPB; Infused Over: 30 mins; Site: left antecubital; 07:49 Follow up: Response: No adverse reaction; IV Status: Completed infusion ph 07:48 Drug: HYDROcodone-acetaminophen PO 5 mg-325 mg 2 tabs PO once Route: PO; ph 07:49 Follow up: Response: No adverse reaction ph Disposition: 07:35 Chart complete. sp4 Disposition Summary: 05/29/25 07:34 Discharge Ordered Problem: new sp4 Symptoms: have improved sp4 Condition: Stable sp4 Diagnosis - Acute urinary tract infection, acute right lower back pain, degenerative disc sp4 disease lumbar spine, uterine nodule, endometrial nodule Followup: sp4 - With: Akilah Walters MD - When: 7 - 10 days - Reason: Recheck today's complaints Followup: sp4 - With: Private Physician - When: 7 - 10 days - Reason: Recheck today's complaints Discharge Instructions: - Discharge Summary Sheet sp4 - Urinary Tract Infection, Adult, [id number] sp4 - Degenerative Disk Disease sp4 Forms: - Patient Portal Instructions sp4 Prescriptions: - meloxicam 15 mg Oral tablet - take 1 tablet ORAL route daily PRN pain; 30 tablet; Refills: 0, Product sp4 Selection Permitted - Cephalexin 500 mg Oral Capsule - take 1 capsule ORAL route every 12 hours for 10 days; 20 capsule; Refills: 0, sp4 Product Selection Permitted - Cyclobenzaprine 10 mg Oral Tablet - take 1 tablet ORAL route every 8 hours As needed; 30 tablet; Refills: 0, sp4 Product Selection Permitted - Tramadol 50 mg Oral Tablet - take 1 tablet ORAL route every 8 hours as needed; 12 tablet; Refills: 0, sp4 Product Selection Permitted Signatures: Dispatcher [employer] EDMS Kathy Cardenas, RN RN AbleJia RN RN lg3 Jesika Concepcion RN RN kd3 Valente Nickerson MD MD sp4 Corrections: (The following items were deleted from the chart) 04:37 04:37 Abdomen Pelvis W Con+CT.RAD.BRZ ordered. EDMS EDMS 04:37 04:37 UA W/ Microscopic+U.LAB.BRZ ordered. EDMS EDMS 05:17 05:17 Troponin High Sensitivity+C.LAB.BRZ ordered. EDMS EDMS
[2025-05-29] MEDS ORDERED: HYDROCODONE/APAP 5/325 MG TAB ONE (07:40)
[2025-05-29 08:26] VITALS: O2SAT 100
[2025-05-29 08:28] VITALS: BP 137/82; TEMP 97.9
== END 2025-05-29 08:14 | disposition home or self-care (01) ==
LOC: ER 04:35
DX: N39.0 Urinary tract infection, site not specified (principal); M51.369 Other intervertebral disc degeneration, lumbar region without mention of lumbar back pain or lower extremity pain; N85.8 Other specified noninflammatory disorders of uterus; R07.9 Chest pain, unspecified
CPT/HCPCS: 96365; 93005; 85025; 81001; 36415; 83690; 80053; 74177; 96375; 99285; J3360; J2405; J7030; J0696